=== PATIENT | male | born 1975 | race Caucasian/White ===

== ENCOUNTER 2024-01-31 12:52 | Emergency (ER) | payer SELFPAY ==
[2024-01-31 12:58] VITALS: BP 154/96; PULSE 76; TEMP 36.8; O2SAT 99; BMI 31.7
--- NOTE | 2024-01-31 13:16 | ED_ITS ---
HPI - Extremity Problem General Chief complaint: Extremity Problem, Nontraumatic Stated complaint: UPPER EXTREMITY PAIN Time Seen by Provider: 01/31/24 13:07 Source: patient Mode of arrival: walk-in History of Present Illness HPI Narrative: Patient is a 48-year-old male presents to the ER for evaluation of right hand pain. Patient reports numbness tingling pain worse at night that wakes him from sleep. Patient states he called off work today has slept very little. He recently started new employment 2 weeks ago and is concerned about being off. Patient has had carpal tunnel symptoms in the past and has used night splinting without relief. Patient notes this is the worst the symptoms have ever been, he denies any injury but states several weeks ago he did do a handstand at a cookout which probably did not help. He denies injuring his wrist. Patient notes pain can radiate from the wrist into his forearm as well as into his thumb, index finger, middle finger and half of his ring finger. Patient notes his little finger is the only thing normal. Patient has pertinent history of psoriatic arthritis, not currently under any treatment and does not have a family doctor. Related Data Previous Rx's ?Medication ?Instructions ?Recorded prednisone 20 mg tablet 40 mg (2 x 20 mg) PO DAILY 5 days 01/31/24 #10 tabs Allergies Allergy/AdvReac Type Severity Reaction Status Date / Time No Known Drug Allergies Allergy Verified 01/31/24 13:02 Review of Systems ROS Constitutional Denies: fever or chills Ears, nose, mouth, and throat Denies: throat pain, neck pain or nasal congestion Cardiovascular Denies: chest pain or palpitations Respiratory Denies: shortness of breath or cough Gastrointestinal Denies: abdominal pain, nausea or vomiting Genitourinary Denies: painful urination Musculoskeletal Reports: joint pain; Denies: back pain, neck pain or extremity pain Integumentary/Breast Reports: rash; Denies: itching or redness Psychiatric Denies: anxiety Allergic/Immunologic Denies: hives [facility] Medical History (Updated 01/31/24 @ 13:18 by ANNALISE Argueta) Arthritis ?M19.90 - Unspecified osteoarthritis, unspecified site (ICD-10) Exam Narrative Exam Narrative: Nurse's notes and vital signs reviewed. Patient is not hypoxic. General: The patient appears well and in no apparent distress. Patient is resting comfortably on cart. Skin: Warm, dry, no pallor noted. Head: Normocephalic, atraumatic Eye: Normal conjunctiva Respiratory: Patient is in no distress Musculoskeletal: The right wrist shows no obvious deformity. There was no swelling noted. Patient reports general tightness in his hand with making a fist. The patient had full range of motion despite pain. The patient had positive Tinel's and phalens, negative Jeferson, negative Tinel at cubital tunnel. The patient had no tenderness in the anatomical snuff box. The patient had no pain with axial loading of the thumb. Pulses are intact at brachial and radial 2+. There was no deficit at the elbow or shoulder. The patient has normal capillary refill to all distal digits. The patient has no evidence of cyanosis or mottling. The patient is able to flex and extend all digits without di fficulty. Neurological: A&O x4, normal sensory, normal motor, sensation intact to point discrimination at 5 mm, but blunted fine prick to median nerve distribution. Psychiatric: Cooperative Constitutional Vital Signs, click to edit/add: Last Vital Signs Temp 98.2 F 01/31/24 12:58 Pulse 76 01/31/24 12:58 Resp 18 01/31/24 12:58 BP 154/96 H 01/31/24 12:58 Pulse Ox 99 01/31/24 12:58 O2 Del Method Room Air 01/31/24 12:58 Course Vital Signs Vital signs: Vital Signs Temperature 98.2 F 01/31/24 12:58 Pulse Rate 76 01/31/24 12:58 Respiratory Rate 18 01/31/24 12:58 Blood Pressure 154/96 H 01/31/24 12:58 Pulse Oximetry 99 01/31/24 12:58 Oxygen Delivery Method Room Air 01/31/24 12:58 Temperature 98.2 F 01/31/24 12:58 Pulse Rate 76 01/31/24 12:58 Respiratory Rate 18 01/31/24 12:58 Blood Pressure 154/96 H 01/31/24 12:58 Pulse Oximetry 99 01/31/24 12:58 Oxygen Delivery Method Room Air 01/31/24 12:58 MDM - Extremity (Nontraumatic) MDM Narrative Medical decision making narrative: Discussed patient's presentation. History of carpal tunnel, recently starting new employment with repetitive wrist motion, untreated psoriatic arthritis, patient with reproducible symptoms and exam consistent with carpal tunnel syndrome again. Recommend prednisone taper to help with inflammation. He was offered an appointment on Saturday with orthopedics for further evaluation but declined stating that he cannot miss work. He is encouraged to use his night brace, Tylenol, ice and prednisone taper. He was given IM injection of Toradol today. To avoid NSAIDs while on steroid. We discussed the importance of prompt orthopedic follow-up for further evaluation. The possibility of EMG or surgery. Patient will need to establish family care with PCP. He is given local providers. Patient aware symptoms can become permanent if not definitively treated. We mutually discussed the benefit of a wrist x-ray today and without focal injury patient would like to save this for outpatient if needed. The patient is to followup with primary care physician/ orthopedics in next 2-3 days or to return to the emergency department should any of the signs or symptoms worsen or new symptoms develop. Patient had questions answered. The patient agrees with the following Diagnosis and Treatment plan and the patient will be discharged home. Discharge Plan Discharge Stand Alone Forms: Portal Instructions Chief Complaint: Extremity Problem, Nontraumatic Clinical Impression: Hand pain, right, Paresthesias in right hand, Carpal tunnel syndrome of right wrist Patient Disposition: Home, Self-Care Time of Disposition Decision: 13:17 Condition: Good Prescriptions / Home Meds: New prednisone 20 mg tablet 40 mg PO DAILY 5 Days Qty: 10 0RF Print Language: Turkish Instructions: Carpal Tunnel Syndrome (DC) Additional Instructions: Dr. Vyas call as soon as possible for orthopedic eval.. recommend night splinting/ prednisone/ Tylenol as directed in interim Call Reina Da Silva for appt to establish as new patient. Referrals: KRYSTAL DA SILVA [Nurse Practitioner] - As soon as possible Jean Carlos Vyas MD [Physician] - As soon as possible
[2024-01-31] MEDS: ACETAMINOPHEN 500 MG TABLET 1000 MG PO (13:23)
[2024-01-31] MEDS: KETOROLAC TROMETHAMINE 60 MG/2 ML VIAL IM (13:23)
[2024-01-31] MEDS: PREDNISONE 20 MG TABLET 40 MG PO (13:23)
== END 2024-01-31 13:31 | disposition home or self-care (01) ==
PROVIDERS: Emergency Provider Emergency Medicine Emergency Medical Services
DX: G56.01 Carpal tunnel syndrome, right upper limb (principal); M79.641 Pain in right hand; R20.2 Paresthesia of skin
CPT/HCPCS: 96372; 99284; J1885; J7512

== ENCOUNTER 2024-02-02 15:41 | Emergency (ER) | payer SELFPAY ==
[2024-02-02 15:47] VITALS: BP 107/51; PULSE 71; TEMP 36.7; O2SAT 100; BMI 31.7
--- OUTSIDE RECORDS SUMMARY | 2024-02-02 15:48 | XMS_ITS | CCD ---
Author Organization [facility] Care Team Providers Care Applications Support Engineer Name Role Phone NELY TRUJILLO Referring Unavailable VALENTIN, LISA A Primary Care Unavailable RONNIE, GALE Admitting Unavailable RONNIE, GALE Attending Unavailable VALENTIN, ILSA A Primary Care Unavailable JUDD SWAIN Admitting Unavailable JUDD SWAIN Attending Unavailable MISC, DOCTOR Primary Care Unavailable JUDD SWAIN Consulting Unavailable RONNIE, GALE Admitting Unavailable RONNIE, GALE Attending Unavailable VALENTIN LISA Primary Care Unavailable MD Juany Land Primary Care Pr ovider PORFIRIO Rader Attending Provider Problems Active Problems Problem Classification Problem Date Documented Date Episodic/Chronic Calculus of urinary tract (1 source) Calculus of kidney; Translations: [Calculus of kidney] Onset: 09-26-2018 Episodic Spondylosis; intervertebral disc disorders; other back problems (7 sources) Other intervertebral disc displacement, lumbar region; Translations: [Other intervertebral disc displacement, lumbosacral region] Onset: 09-26-2018 Chronic Past or Other Problems Problem Classification Problem Date Documented Da te Episodic/Chronic Other connective tissue disease (3 sources) Pain in left foot; Translations: [PAIN IN LEFT FOOT] Onset: 09-07-2018 Episodic Spondylosis; intervertebral disc disorders; other back problems (1 source) Radiculopathy, lumbar region; Translations: [RADICULOPATHY LUMBAR REGION] Onset: 09-09-2018 Episodic Results Test Name Value Interpretation Reference Range Facility Alanine aminotransferase [En zymatic activity/volume] in Serum or PlasmaOrdered By: Jocelyn Rader on 01-10-2024 ALT [Catalytic activity/Vol] 43 U/L 7-52 [facility] Albumin [Mass/volume] in Ser um or Plasma by Bromocresol green (BCG) dye binding methoOrdered By: Jocelyn Rader on 01-10-2024 Albumin BCG dye [Mass/Vol] 4.7 g/dL 3.5-5.7 [facility] Alkaline phosphatase [Enzyma tic activity/volume] in Serum or PlasmaOrdered By: Jocelyn Rader on 01-10-2024 ALP [Catalytic activity/Vol] 83 U/L 34-104 [facility] Aspartate aminotransferase [ Enzymatic activity/volume] in Serum or PlasmaOrdered By: Jocelyn Rader on 01-10-2024 AST [Catalytic activity/Vol] 131 U/L High 13-39 [facility] Basophils Auto (Bld) [#/Vol] Ordered By: Jocelyn Rader on 01-10-2024 Basophils (Bld) [#/Vol] 0.1 10*3/uL 0.0-0.2 [facility] Basophils/100 WBC Auto (Bld) Ordered By: Jocelyn Rader on 01-10-2024 Basophils/100 WBC (Bld) 1.2 % . [facility] Bilirubin.total [Mass/volume ] in Serum or PlasmaOrdered By: Jocelyn Rader on 01-10-2024 Bilirubin [Mass/Vol] 0.9 mg/dL 0.3-1.0 [facility] Calcium [Mass/volume] in Ser um or PlasmaOrdered By: Jocelyn Rader on 01-10-2024 Calcium [Mass/Vol] 9.8 mg/dL 8.6-10.3 [facility] Carbon dioxide, total [Moles /volume] in Serum or PlasmaOrdered By: Jocelyn Rader on 01-10-2024 CO2 [Moles/Vol] 28.4 mmol/L 21.0-31.0 [facility] Chloride [Moles/volume] in S marco antonio or PlasmaOrdered By: Jocelyn Rader on 01-10-2024 Chloride [Moles/Vol] 101 mmol/L 98-107 [facility] Creatinine [Mass/volume] in Serum or PlasmaOrdered By: Jocelyn Rader on 01-10-2024 Creatinine [Mass/Vol] 0.92 mg/dL 0.70-1.30 [facility] Eosinophils Auto (Bld) [#/Vo l]Ordered By: Jocelyn Rader on 01-10-2024 Eosinophils (Bld) [#/Vol] 0.2 10*3/uL 0.0-0.45 [facility] Eosinophils/100 WBC Auto (Bl d)Ordered By: Jocelyn Rader on 01-10-2024 Eosinophils/100 WBC (Bld) 2.2 % . [facility] Erythrocyte distribution wid th Auto (RBC) [Ratio]Ordered By: Jocelyn Rader on 01-10-2024 Erythrocyte distribution width (RBC) [Ratio] 13.5 % 12.0-14.8 [facility] Globulin Calc (S) [Mass/Vol] Ordered By: Jocelyn Rader on 01-10-2024 Globulin (S) [Mass/Vol] 2.6 g/dL [facility] Glucose [Mass/volume] in Ser um or PlasmaOrdered By: Joceyln Rader on 01-10-2024 Glucose [Mass/Vol] 100 mg/dL 70-100 [facility] Comment on above: ADA recommended refe rence rangeRandom Glucose Reference Range is dependent on time and content of last meal. Glucose of more than 200 mg/dL in a nonstressed, ambulatory subject supports the diagnosis of Diabetes Mellitus. Hematocrit Auto (Bld) [Volum e fraction]Ordered By: Jocelyn Rader on 01-10-2024 Hematocrit (Bld) [Volume fraction] 47.6 % 38.8-50.0 [facility] Hemoglobin [Mass/volume] in BloodOrdered By: Jocelyn Rader on 01-10-2024 Hemoglobin (Bld) [Mass/Vol] 16.3 g/dL 13.0-17.0 [facility] Leukocytes [#/volume] correc mark for nucleated erythrocytes in Blood by Automated counOrdered By: Jocelyn Rader on 01-10-2024 WBC corrected for nucl RBC Auto (Bld) [#/Vol] 8.0 10*3/uL 4.1-10.5 [facility] Lymphocytes Auto (Bld) [#/Vo l]Ordered By: Jocelyn Rader on 01-10-2024 Lymphocytes (Bld) [#/Vol] 2.4 10*3/uL 1.00-4.8 [facility] Lymphocytes/100 WBC Auto (Bl d)Ordered By: Jocelyn Rader on 01-10-2024 Lymphocytes/100 WBC (Bld) 30.2 % . [facility] MCH Auto (RBC) [Entitic mass ]Ordered By: Jocelyn Rader on 01-10-2024 MCH (RBC) [Entitic mass] 31.6 pg 27.5-35.2 [facility] MCHC Auto (RBC) [Mass/Vol]Or dered By: Jocelyn Rader on 01-10-2024 MCHC (RBC) [Mass/Vol] 34.2 g/dL 32.5-35.6 [facility] MCV Auto (RBC) [Entitic vol] Ordered By: Jocelyn Rader on 01-10-2024 MCV (RBC) [Entitic vol] 92.5 fL 83.5-101 [facility] Monocytes Auto (Bld) [#/Vol] Ordered By: Jocelyn Rader on 01-10-2024 Monocytes (Bld) [#/Vol] 0.5 10*3/uL 0.0-0.8 [facility] Monocytes/100 WBC Auto (Bld) Ordered By: Jocelyn Rader on 01-10-2024 Monocytes/100 WBC (Bld) 6.4 % . [facility] Neutrophils Auto (Bld) [#/Vo l]Ordered By: Jocelyn Rader on 01-10-2024 Neutrophils (Bld) [#/Vol] 4.8 10*3/uL 1.8-7.7 [facility] Neutrophils/100 WBC Auto (Bl d)Ordered By: Jocelyn Rader on 01-10-2024 Neutrophils/100 WBC (Bld) 60.0 % . [facility] No Panel InformationOrdered By: Jocelyn Rader on 01-10-2024 Estimated GFR (CKD-EPI) > 60.0 mL/Min [facility] Creatinine Clearance (Chem N/A [facility] Nucleated erythrocytes [Pres ence] in Blood by Automated countOrdered By: Jocelyn Rader on 01-10-2024 Nucleated RBC Auto Ql (Bld) 0.1 /100{WBC} 0-0.5 [facility] Platelet mean volume Auto (B ld) [Entitic vol]Ordered By: Jocelyn Rader on 01-10-2024 Platelet mean volume (Bld) [Entitic vol] 9.1 fL 6.6-10.1 [facility] Platelets Auto (Bld) [#/Vol] Ordered By: Jocelyn Rader on 01-10-2024 Platelets (Bld) [#/Vol] 253 10*3/uL 150-450 [facility] Potassium [Moles/volume] in Serum or PlasmaOrdered By: Jocelyn Rader on 01-10-2024 Potassium [Moles/Vol] 4.4 mmol/L 3.5-5.1 [facility] Protein [Mass/volume] in Ser um or PlasmaOrdered By: Jocelyn Rader on 01-10-2024 Protein [Mass/Vol] 7.3 g/dL 6.4-8.9 [facility] RBC Auto (Bld) [#/Vol]Ordere d By: Jocelyn Rader on 01-10-2024 RBC (Bld) [#/Vol] 5.15 10*6/uL 3.90-5.60 [facility] Serum or plasma albumin/glob ulin mass ratioOrdered By: Jocelyn Rader on 01-10-2024 Albumin/Globulin [Mass ratio] 1.8 {ratio} [facility] Serum or plasma anion gap de terminationOrdered By: Jocelyn Rader on 01-10-2024 Anion gap [Moles/Vol] 12.0 mmol/L 6.0-15.0 [facility] Sodium [Moles/volume] in Ser um or PlasmaOrdered By: Jocelyn Rader on 01-10-2024 Sodium [Moles/Vol] 137 mmol/L 136-145 [facility] Urea nitrogen [Mass/volume] in Serum or PlasmaOrdered By: Jocelyn Rader on 01-10-2024 Urea nitrogen [Mass/Vol] 21 mg/dL 7-25 [facility] WBC Auto (Bld) [#/Vol]Ordere d By: Jocelyn Rader on 01-10-2024 WBC (Bld) [#/Vol] 8.0 10*3/uL 4.1-10.5 [facility] FLUORO FOR SURGICAL PROCEDUR ESon 10-03-2018 FLUORO FOR SURGICAL PROCEDURES FLUORO FOR SURGICAL PROCEDURES : 10/03/2018 6:45 AM CLINICAL HISTORY: Lumbar microdiskectomy . COMPARISON: None available. Intraoperative fluoroscopy was provided for Dr. Trujillo's procedure. A total of 5.4 seconds of fluoroscopy was used, with one fluoroscopic stills saved. No diagnostic images were obtained. Please see Dr. Trujillo's surgical notes for completeness. Interpreted by: Doc Lamas MD Signed by: Doc Lamas MD 10/04/[address] [facility] OPERATIVE REPORTon 9 [place] [address] OPERATIVE REPORT PATIENT NAME: FIDEL HILL : 1975 MED REC NO: [id number] ROOM: [facility] ACCOUNT NO: [id number] ADMIT DATE: 10/03/2018 PROVIDER: Nely Trujillo MD DATE OF PROCEDURE: 10/03/2018 PREOPERATIVE DIAGNOSIS: Right L5-S1 extruded disc. POSTOPERATIVE DIAGNOSIS: Right L5-S1 extruded disc. OPERATION PERFORMED: Right L5-S1 microdissection diskectomy. DESCRIPTION OF PROCEDURE: The patient was given general endotracheal anesthesia in supine position. Turned to prone position. Back was prepped and draped. Time-out, patient identified. Needle was placed. Lateral x-rays obtained confirm level. Needle was withdrawn. Small skin incision about 3 cm made just to the right side of spinous process tip of L5. Dissection was carried down through the thick subcutaneous fat measuring about 4 cm to the fascia which was split using muscle sparing technique. The right L5 lamina was exposed. Needle was placed. Lateral x-rays obtained to confirm level. Needle was withdrawn. Microscope brought into field with the micro retractor in place. The ligamentum flavum detaching the inferior aspect of L5 from medial aspect of facet joint complex. Foraminotomy performed for the exit of the right S1 nerve root. The dural sac was gently mobilized medially encountering the large protruded disc which was central into the right. I was able to remove these large protruded disc fragments directly off the anterior aspect of the S1 nerve root and the thecal sac, decompressing the neural elements. Degenerated disc material was removed to reduce the chances of recurrence. The wound was thoroughly irrigated. Fascia closed with 0 Vicryl suture. Subcutaneous tissues were closed with 2-0, 3-0 Vicryl suture. No blood transfused. EBL less than 50 mL. The patient tolerated well. NELY TRUJILLO MD /[id number] Doc#: [id number] CC: Normal [facility] Basic Metabolic Panelon 09-15 Anion gap molar conc 13 mmol/L Normal 9-15 [facility] Comment on above: Result Comment: Effe ctive: 07/24/2018 New reference range for this analyte has been established. Performed By: #### B MP #### [facility] [address] [place] [address] Calcium mass conc 9.0 mg/dL Normal 8.5-9.9 [facility] Comment on above: Result Comment: Effe ctive: 07/24/2018 New reference range for this analyte has been established. Performed By: #### B MP #### [facility] [address] [place] [address] Chloride molar conc 101 mmol/L Normal 95-107 [facility] Comment on above: Result Comment: Effe ctive: 07/24/2018 New reference range for this analyte has been established. Performed By: #### B MP #### [facility] [address] [place] [address] CO2 molar conc 23 mmol/L Normal 20-31 [facility] Comment on above: Result Comment: Effe ctive: 07/24/2018 New reference range for this analyte has been established. Performed By: #### B MP #### [facility] [address] [place] [address] Creatinine mass conc 0.62 mg/dL Low 0.70-1.20 [facility] Comment on above: Performed By: #### B MP #### [facility] [address] [place] [address] GFR/1.73 sq M predicted among blacks MDRD vol rate/area (S/P/Bld) mL/min/{1.73_m2} Normal >60 [facility] Comment on above: Result Comment: >60 mL/min/1.73m2 EGFR, calc. for ages 18 and older using the MDRD formula (not corrected for weight), is valid for stable renal function. Performed By: #### B MP #### [facility] [address] [place] [address] GFR/1.73 sq M.predicted MDRD vol rate/area mL/min/{1.73_m2} Normal >60 [facility] Comment on above: Result Comment: >60 mL/min/1.73m2 EGFR, calc. for ages 18 and older using the MDRD formula (not corrected for weight), is valid for stable renal function. Performed By: #### B MP #### [facility] [address] [place] [address] Glucose mass conc 94 mg/dL Normal 70-99 [facility] Comment on above: Result Comment: Effe ctive: 07/24/2018 New reference range for this analyte has been established. Performed By: #### B MP #### [facility] [address] [place] [address] Potassium molar conc 4.2 mmol/L Normal 3.4-4.9 [facility] Comment on above: Result Comment: Effe ctive: 07/24/2018 New reference range for this analyte has been established. Performed By: #### B MP #### [facility] [address] [place] [address] Sodium molar conc 137 mmol/L Normal 135-144 [facility] Comment on above: Result Comment: Effe ctive: 07/24/2018 New reference range for this analyte has been established. Performed By: #### B MP #### [facility] [address] [place] [address] Urea nitrogen mass conc 19 mg/dL Normal 6-20 [facility] Comment on above: Performed By: #### B MP #### [facility] [address] [place] [address] CBC With Platelet No Differe ntialon 09-26-2018 Erythrocyte distribution width Ratio (RBC) 13.6 % Normal 11.5-14.5 [facility] Comment on above: Performed By: #### C BCND #### [facility] [address] [place] [address] Hematocrit Volume Fraction (Bld) 46.2 % Normal 42.0-52.0 [facility] Comment on above: Performed By: #### C BCND #### [facility] [address] [place] [address] Hemoglobin mass conc (Bld) 15.7 g/dL Normal 14.0-18.0 [facility] Comment on above: Performed By: #### C BCND #### [facility] [address] [place] [address] MCH Entitic mass (RBC) 32.3 pg Critically high 27.0-31. 3 [facility] Comment on above: Performed By: #### C BCND #### [facility] [address] [place] [address] MCHC mass conc (RBC) 34.0 % Normal 33.0-37.0 [facility] Comment on above: Performed By: #### C BCND #### [facility] [address] [place] [address] MCV Entitic volume (RBC) 94.8 fL Normal 80.0-100.0 [facility] Comment on above: Performed By: #### C BCND #### [facility] [address] [place] [address] Platelets #/vol (Bld) 233 10*3/uL Normal 130-400 [facility] Comment on above: Performed By: #### C BCND #### [facility] [address] [facility] [address] RBC #/vol (Bld) 4.87 10*6/uL Normal 4.70-6.10 [facility] Comment on above: Performed By: #### C BCND #### [facility] [address] [place] [address] WBC #/vol (Bld) 6.1 10*3/uL Normal 4.8-10.8 [facility] Comment on above: Performed By: #### C BCND #### [facility] [address] [facility] [address] Prothrombin Timeon 9 INR Coag RelTime (PPP) 0.9 {INR} Normal [facility] Comment on above: Result Comment: Raul mmended INR therapeutic ranges for oral anticoagulant therapy Prophylaxis/treatment of: INR Venous Thrombosis, Pulmonary Embolism 2.0-3 Prevention of Systemic Embolism from: Atrial Fibrillation 2.0-3.0 Myocardial Infarction 2.0-3.0 Mechanical Prosthetics Heart Valves 2.5-3.5 Recurrent Systemic Embolism 2.5-3.5 Guidelines for patients with coagulopathy, e.g. liver disease: Use the Protime resulted in seconds. Mild 12.9-17.0 sec Moderate 17.1-22.6 sec Severe G.T. 22.6 sec Performed By: #### P T #### [facility] [address] [facility] [address] Prothrombin time (PT) Coag time (PPP) 9.6 s Normal 9.0-11.5 [facility] Comment on above: Result Comment: Effe ctive 05/20/18: Please note reference ranges have changed for PT testing. Performed By: #### P T #### [facility] [address] [facility] [address] Type and Screen Capture 3 sc rn cellon 09-26-2018 Type and Screen Capture 3 scrn cell PATIENT: SERGIO CEDEÑO LOC: [facility] BILL# : [id number] : 1975 SEX: M ORDERED BY: TRENTON Roberts ORDERED : 09/26/2018 10:15 COLLECTED: 09/26/2018 10:59 ORDER : [id number] RECEIVED : 09/26/2018 10:59 Confirmation type needs to be drawn. -- TEST NAME RESULT UNITS RANGES ABN FL ST [facility] Capture A NEG F Antibody 3 Cell Scrn Captu NEG F - Normal [facility] Comment on above: Performed By: #### T S3C #### [facility] [address] [place] [address] Urinalysis, reflex to cultur mik 09-26-2018 Bilirubin Ql (U) Negative Normal Negative [facility] Comment on above: Performed By: #### U AR #### [facility] [address] [place] [address] Clarity Nom (U) Clear Normal Clear [facility] Comment on above: Performed By: #### U AR #### [facility] [address] [place] [address] Color Nom (U) Yellow Normal Straw/[place]uron [facility] Comment on above: Performed By: #### U AR #### [facility] [address] [place] [address] Glucose Ql (U) Negative Normal Negative [facility] Comment on above: Performed By: #### U AR #### [facility] [address] [place] [address] Hemoglobin Ql (U) Negative Normal Negative [facility] Comment on above: Performed By: #### U AR #### [facility] [address] [place] [address] Ketones Ql (U) Negative Normal Negative [facility] Comment on above: Performed By: #### U AR #### [facility] [address] [place] [address] Leukocyte esterase Test strip Ql (U) Negative Normal Negative [facility] Comment on above: Performed By: #### U AR #### [facility] [address] [place] [address] Nitrite Ql (U) Negative Normal Negative [facility] Comment on above: Performed By: #### U AR #### [facility] [address] [place] [address] pH (U) 7.0 [pH] Normal 5.0-9.0 [facility] Comment on above: Performed By: #### U AR #### [facility] [address] [place] [address] Protein Ql (U) Negative Normal Negative [facility] Comment on above: Performed By: #### U AR #### [facility] [address] [place] [address] Specific gravity Relative Density (U) 1.027 Normal 1.005-1.03 [facility] Comment on above: Performed By: #### U AR #### [facility] [address] [place] [address] Urine Reflexed to Culture Not Indicated Normal [facility] Comment on above: Performed By: #### U AR #### [facility] [address] [place] [address] Urobilinogen Qn (U) 1.0 {Prabha'U}/dL Normal < 2.0 [facility] Comment on above: Performed By: #### U AR #### [facility] [address] [place] [address] Encounters Encounter Date Encounter Type Care Provider Facility Start: 01-10-2024 End: 01-10-2024 ambulatory MD Juany You Work Phone: [facility] Work Phone: Start: 01-10-2024 End: 01-10-2024 Departed Referred MD Juany You Work Phone: [facility] [address] Work Phone: Start: 10-14-2018 End: 02-19-2019 Patient encounter procedure GALE RONNIE Facility: Start: 10-03-2018 End: 10-03-2018 Patient encounter procedure GALE RONNIE [facility] Start: 09-26-2018 End: 10-01-2018 Patient encounter procedure GALE RONNIE [facility] Start: 09-07-2018 End: 09-07-2018 Patient encounter procedure JUDD SWAIN Facility:H1 Procedures Date Procedure Procedure Detail Performing Clinician Start: 10-03-2018 ACTIVITY TOLERATED G CHRIS RONNIE Start: 10-03-2018 DIET GENERAL GALE RONNIE Start: 10-03-2018 FULL CODE GALE RONNIE Start: 10-03-2018 PLACE INTERMITTENT P NEUMATIC COMPRESSION DEVICE GALE RONNIE Start: 10-03-2018 VITAL SIGNS GALE RONNIE Start: 10-03-2018 WOUND CARE GALE RONNIE Start: 10-03-2018 FLUORO FOR SURGICAL PROCEDURES GALE RONNIE Start: 10-03-2018 DISCHARGE PATIENT GALE RONNIE Start: 10-03-2018 PATIENT STATUS (FROM ED OR OR/PROCEDURAL) GALE RONNIE Start: 10-03-2018 TRANSFER PATIENT GALE H AZEN Start: 09-26-2018 Prothrombin time GALE H AZEN Start: 09-26-2018 Urnls dip stick/tabl et rgnt auto w/o microscopy GALE RONNIE Start: 09-26-2018 Basic metabolic pane l calcium total GALE RONNIE Start: 09-26-2018 Blood count complete automated GALE RONNIE Start: 09-26-2018 TYPE AND SCREEN GALE DON ALBERTO Payers Date Payer Category Payer Unknown [id number] 1975 Unknown [id number] 1975 Unknown [id number] 1975 Unknown [id number] 1959 Unknown [id number] Private Health Insurance [employer] [id number] Social History Date Type Detail Facility Tobacco smoking stat [facility] Unknown if ever smoked [facility] Work Phone: Start: 1975 Sex Assigned At Male [facility] Evaluation note Note Date & Type Note Facility Evaluation note No assessment information availa ble [facility] Work Phone: Summary Purpose Family History No Family History Records FoundNo Family History Records Found Advance Directives No Advanced Directives Records FoundNo Advanced Directives Records [place] [address] DISCHARGE SUMMARY PATIENT NAME: FIDEL HILL : 1975 MED REC NO: [id number] ROOM: [facility] ACCOUNT NO: [id number] ADMIT DATE: 10/03/2018 PROVIDER: Nely Trujillo MD DISCH DATE: 10/03/2018 On 10/03/2018, right L5-S1 microdiskectomy. The patient tolerated procedure well. I anticipate discharge within this next day. DISCHARGE DIAGNOSIS: Right L5-S1 extruded disc, resolved. DISCHARGE MEDICATIONS: Eclectic 5/325 #28 sig one q.i.d. p.r.n. pain. DISCHARGE INSTRUCTIONS: The patient had been instructed to keep the wound clean and dry about 3 days, avoiding soaking or soap for a week. Recheck in a month. Questions or problems, contact the office. NELY TRUJILLO MD /[id number] Doc#: [id number] CC: Chief Complaint and Reason for Visit Chief Complaint Pre-emp Additional Source Comments (unrecognized sect ion and content) No Status Records FoundNo Status Records Found INFORMATION SOURCE (unrecogn ized section and content) DATE CREATED AUTHOR 10/04/2018 [facility] DATE CREATED AUTHOR AUTHOR'S LETA OTT 03/26/2019 [facility] Care Teams (unrecognized sec tion and content) Team Status: Active Member Role Status Dates Juany You MD Primary Care Provide r Active Team Status: Inactive Member Role Status Dates Juany You MD Primary Care Provide r Active Start: January 10, 2024 End: January 10, 2024 Jocelyn Rader APRN Attending Provider Active Start: January 10, 2024 End: January 10, 2024 Goals (unrecognized section and content) Goals may be documented in a n alternate section FOR RECORDS PERTAINING TO PATIENTS WHO ARE OR HAVE BEEN ENROLLED IN A CHEMICAL DEPENDENCY/SUBSTANCEABUSE PROGRAM, SOME INFORMATION MAY BE OMITTED. This clinical summary was aggregated from multiple sources. Caution should be exercised in using it in the provision of clinical care. This summary normalizes information from multiple sources, and as a consequence, information in this document may materially change the coding, format and clinical context of patient data. In addition, data may be omitted in some cases. CLINICAL DECISIONS SHOULD BE BASED ON THE PRIMARY CLINICAL RECORDS. [facility] [employer] [facility]. provides no warranty or guarantee of the accuracy or completeness of information in this document.
--- NOTE | 2024-02-02 16:00 | ED_ITS ---
HPI - Wound/Laceration General Chief Complaint: Wound/Laceration Stated Complaint: Laceration/Puncture Time Seen by Provider: 02/02/24 15:59 Source: patient and family Mode of arrival: walk-in Limitations: no limitations History of Present Illness HPI narrative: Patient is a 48-year-old male right dominant, presents to the ER with concerns of laceration of the left thumb, he is unsure of his last tetanus. Patient states he was using a vegetable slicer when it broke off the side and the metal blade struck his left thumb. Bleeding controlled, patient reports feeling nauseous with the site of blood. Notes mild to moderate pain. Patient was recently seen for carpal tunnel symptoms in the right hand which are improving. Patient only has a pertinent history of psoriatic arthritis which is untreated. Patient denies intentional self-harm. Onset (ago): minute(s) Extremity Location: Left: hand Place: Reports home Patient tetanus UTD: No Context: Reports accidental Associated symptoms: Reports pain Related Data Previous Rx's ?Medication ?Instructions ?Recorded prednisone 20 mg tablet 40 mg (2 x 20 mg) PO DAILY 5 days 01/31/24 #10 tabs Allergies Allergy/AdvReac Type Severity Reaction Status Date / Time No Known Drug Allergies Allergy Verified 01/31/24 13:02 Review of Systems ROS Constitutional Denies: fever, chills, change in weight or fatigue Eyes Denies: change in vision, blurry vision or blind spots Ears, nose, mouth, and throat Denies: throat pain or neck pain Cardiovascular Denies: chest pain or palpitations Respiratory Denies: shortness of breath, cough or wheezing Gastrointestinal Denies: abdominal pain, nausea or vomiting Musculoskeletal Denies: back pain or neck pain Integumentary/Breast Denies: rash, itching or redness Psychiatric Denies: anxiety Hematologic/Lymphatic Denies: easy bruising [facility] Medical History (Updated 02/02/24 @ 16:15 by ANNALISE Argueta) Arthritis ?M19.90 - Unspecified osteoarthritis, unspecified site (ICD-10) Exam Narrative Exam Narrative: Nurse's notes and vital signs reviewed. Patient is not hypoxic. General: The patient appears well and in no apparent distress. Patient is resting comfortably on cart. Skin: Warm, dry, no pallor noted. 3 linear horizontal equally spaced lacerations to the thenar eminence of the thumb. Smaller puncture wound noted more distal. Bleeding controlled. Head: Normocephalic, atraumatic Eye: Normal conjunctiva Respiratory: Patient is in no distress Musculoskeletal: The left wrist shows no obvious deformity. Abrasion noted to the radial aspect thenar aspect of the thumb There was no swelling noted. The patient had full rom of thumb despite pain, denies n/t/ The patient had tenderness noted to lacerations The patient had no tenderness in the anatomical snuff box. The patient had no pain with axial loading of the thumb. Pulses are intact at brachial and radial 2+. There was no deficit at the elbow or shoulder. The patient has normal capillary refill to all distal digits. The patient has no evidence of cyanosis or mottling. The patient is able to flex and extend all digits without difficulty. Neurological: A&O x4, normal sensory, normal motor Psychiatric: Cooperative Constitutional Vital Signs, click to edit/add: Last Vital Signs Temp 98.0 F 02/02/24 15:47 Pulse 71 02/02/24 15:47 Resp 18 02/02/24 15:47 BP 107/51 02/02/24 15:47 Pulse Ox 100 02/02/24 15:47 O2 Del Method Room Air 02/02/24 15:47 Course Vital Signs Vital signs: Vital Signs Temperature 98.0 F 02/02/24 15:47 Pulse Rate 71 02/02/24 15:47 Respiratory Rate 18 02/02/24 15:47 Blood Pressure 107/51 02/02/24 15:47 Pulse Oximetry 100 02/02/24 15:47 Oxygen Delivery Method Room Air 02/02/24 15:47 Temperature 98.0 F 02/02/24 15:47 Pulse Rate 71 02/02/24 15:47 Respiratory Rate 18 02/02/24 15:47 Blood Pressure 107/51 02/02/24 15:47 Pulse Oximetry 100 02/02/24 15:47 Oxygen Delivery Method Room Air 02/02/24 15:47 MDM - Wound/Laceration MDM Narrative Medical decision making narrative: Chopping device broke causing laceration, x-rays performed to rule out foreign body. Tetanus updated. Discussed wounds, recommended suture repair given depth and location. Patient also difficulty with right hand use secondary to carpal tunnel symptoms. Patient has follow-up Saturday with orthopedics. Advised that these sutures need to be pulled out by PCP or ER likely in 10 days. Patient verbally understanding. Discussed care, keep clean and dry. Limit excessive gripping with the left hand until wounds are healed. The patient is to followup with primary care physician in next 10 days or to return to the emergency department should any of the signs or symptoms worsen or new symptoms develop. Patient had questions answered. The patient agrees with the following Diagnosis and Treatment plan and the patient will be discharged home. SUPERVISED APC VISIT, PHYSICIAN ATTESTATION: Based on the medical record the care appears appropriate. ? Imaging Data xray left hand: Attestation: I personally reviewed and interpreted this imaging study as follows: My impression: 3 views: no acute fracture, normal alignment. no radio-opaque foreign body. Discharge Plan Discharge Stand Alone Forms: Portal Instructions Chief Complaint: Wound/Laceration Clinical Impression: Laceration of hand, left Patient Disposition: Home, Self-Care Time of Disposition Decision: 16:51 Condition: Good Prescriptions / Home Meds: No Action prednisone 20 mg tablet 40 mg PO DAILY 5 Days Qty: 10 0RF Print Language: Greek Instructions: Laceration (ED) Additional Instructions: * Limit excessive gripping the left hand, keep clean and dry. * Call PCP ( [facility]) on saturday to establish new care/ follow up. Referrals: KRYSTAL DA SILVA [Nurse Practitioner] - 02/12/24 Procedures ED Laceration Laceration Laceration 1: Additional comments: Laceration repair: 3 - 1 cm laceration equidistant horizontal. Done under sterile conditions. The use of Betadine was used to prep and clean the area. Local injection with lidocaine 1% was used, approximately 4 cc. The wound was irrigated copiously with normal saline. The wound was explored there was no evidence of foreign material. Each laceration was approximated with 4-0 nylon. 2 simple interrupted sutures were placed to each laceration ( six sutures in total) Patient tolerated the procedure well. The patient was neurovascularly intact post. the patient had bacitracin applied to the laceration and a dry sterile dressing was place. The patient will need to follow-up in the next 10 days for removal.
--- NOTE | 2024-02-02 16:04 | XR_ITS ---
The [address] [address] Patient Name: GALA HILL MRN: [id number] date: 1975 Sex: M Assigned Patient Location: ED.MAIN Current Patient Location: Accession/Order Number: [id number] Exam Date: 02/02/2024 17:00 Report Date: 02/02/2024 17:39 At the request of: REYNALDO WEEKS Procedure: XR hand LT min 3V EXAM: XR hand LT min 3V HISTORY: laceration left thumb COMPARISON: None. TECHNIQUE: PA, oblique, lateral x-ray left hand. FINDINGS: No fracture or dislocation or other acute bony abnormality. Findings suggesting soft tissue abnormality distal thumb without evidence of foreign body or adjacent bony abnormality... Joints unremarkable. Normal-appearing carpal bones, distal radius and ulna at the wrist. XR/XR hand LT min 3V IMPRESSION: Negative for fracture or soft tissue foreign body.. Electronically authenticated by: SHAUN SEO Date: 02/02/2024 17:39
[2024-02-02] MEDS: ONDANSETRON 4 MG RAPDIS TABLET SL (16:17)
[2024-02-02] MEDS: ACETAMINOPHEN 500 MG TABLET 1000 MG PO (16:17)
[2024-02-02] MEDS: BACITRACIN 0.9 GM PACKET 1 PACKET TOPICAL (16:18)
[2024-02-02] MEDS: ADACEL DIPH,PERTUSS(ACELL),TET VAC/PF 0.5 ML ADULT SYRINGE IM (16:18)
[2024-02-02] MEDS: SODIUM CHLORIDE 0.9% IRRIG SOLUTION 1,000 ML BOTTLE 1000 ML IRR (16:18)
[2024-02-02] MEDS: LIDOCAINE HCL 1% 100 MG/10 ML MDV INJ (16:18)
== END 2024-02-02 17:21 | disposition home or self-care (01) ==
PROVIDERS: Emergency Provider Student in an Organized Health Care Education/Training Program
DX: S61.012A Laceration without foreign body of left thumb without damage to nail, initial encounter (principal); Z23 Encounter for immunization; W22.8XXA Striking against or struck by other objects, initial encounter
CPT/HCPCS: 12002; 73130; 90471; 90715; 99284; Q0162